=== PATIENT | male | born 1995 | race Caucasian/White ===

== ENCOUNTER 2016-11-29 13:25 | Emergency (ER) | payer OTHER, SELFPAY ==
--- NOTE | 2016-11-29 13:56 | ERPHSYRPT ---
- History of Present Illness Time Seen by Provider: 11/29/16 13:51 Source: patient Patient Subjective Stated Complaint: lt upper toothache for one week Triage Nursing Assessment: has dentist appt on thursday with dr warren. lt upper toothache for 1 week. broken tooth months ago but states pain started one week ago. multiple dental caries noted Physician History: C/O toothach for past 3 weeks to left upper teeth area. States injured tooth 3 months ago and to see dentist in 3 days. Increase pain with cold exposure and eating. Denies any fever, chills, nausea or vomiting. States had left jaw swelling yesterday but much better today. Timing/Duration: week(s) (3), intermittent Severity: moderate Modifying Factors: Improves With: cold therapy (worse), eating (worse) Associated Symptoms: No nausea, No vomiting, No fever, No headaches Allergies/Adverse Reactions: bee pollen Allergy (Verified 11/29/16 13:31) Home Medications: No Home Meds 1 [facility] UD 09/12/14 [History] Hx Tetanus, Diphtheria Vaccination/Date Given: Yes Hx Influenza Vaccination/Date Given: No Hx Pneumococcal Vaccination/Date Given: No Immunizations Up to Date: Yes - Review of Systems Constitutional: No Fever, No Chills Eyes: No Symptoms Ears, Nose, & Throat: Mouth Pain, Mouth Swelling, No Loose Teeth, No Throat Pain , No Throat Swelling Respiratory: No Cough, No Dyspnea Cardiac: No Chest Pain, No Edema, No Syncope Abdominal/Gastrointestinal: No Abdominal Pain, No Nausea, No Vomiting, No Diarrhea Genitourinary Symptoms: No Dysuria Musculoskeletal: No Back Pain, No Neck Pain Skin: No Rash Neurological: No Dizziness, No Focal Weakness, No Sensory Changes Psychological: No Symptoms Endocrine: No Symptoms All Other Systems: Reviewed and Negative - Past Medical History Pertinent Past Medical History: No Neurological History: No Pertinent History ENT History: No Pertinent History Cardiac History: No Pertinent History Respiratory History: No Pertinent History Endocrine Medical History: No Pertinent History Musculoskeletal History: Fractures GI Medical History: No Pertinent History History: No Pertinent History Psycho-Social History: Attention Deficit Disorder Male Reproductive Disorders: No Pertinent History Other Medical History: adhd as child - Past Surgical History Past Surgical History: Yes Neuro Surgical History: No Pertinent History Cardiac: No Pertinent History Respiratory: No Pertinent History Gastrointestinal: No Pertinent History Genitourinary: No Pertinent History Musculoskeletal: Orthopedic Surgery Male Surgical History: No Pertinent History Other Surgical History: hardware in rt wrist. tonsils - Social History Smoking Status: Current every day smoker How long have you smoked: 2 Exposure to second hand smoke: Yes Alcohol Use: Socially Drug Use: none Patient Lives Alone: No Significant Family History: no pertinent family hx - Nursing Vital Signs Nursing Vital Signs: Initial Vital Signs Temperature 98.3 F Pulse Rate 100 Respiratory Rate 18 Blood Pressure 133/86 Pain Intensity 7 - Physical Exam General Appearance: no apparent distress, alert Eye Exam: PERRL/EOMI, eyes nml inspection Ears, Nose, Throat Exam: TMs normal, pharynx normal, moist mucous membranes, other (patient with multiple dental caries. There is noticeable left upper molar tooth decay along with partially broken premolar. There is some tenderness to palpation to this area) Neck Exam: normal inspection, non-tender, supple, full range of motion Respiratory Exam: normal breath sounds, lungs clear, No respiratory distress Cardiovascular Exam: regular rate/rhythm, normal heart sounds, normal peripheral pulses Gastrointestinal/Abdomen Exam: soft, normal bowel sounds, No tenderness, No mass Back Exam: normal inspection, normal range of motion, No CVA tenderness, No vertebral tenderness Extremity Exam: normal inspection, normal range of motion, pelvis stable Neurologic Exam: alert, oriented x 3, cooperative, normal mood/affect, nml cerebellar function, nml station & gait, sensation nml, No motor deficits Skin Exam: normal color, warm, dry, No rash Lymphatic Exam: No adenopathy SpO2: 97 Oxygen Delivery: Room Air - Course Nursing assessment & vital signs reviewed: Yes - Progress Progress: unchanged Counseled pt/family regarding: diagnosis - Departure Time of Disposition: 14:00 Departure Disposition: Home, In-patient Admission Clinical Impression: Dental caries, Tooth decay, Dental caries Condition: Stable Critical Care Time: No Referrals: ZULEIMA MA MD [Primary Care Provider] - Additional Instructions: return for worse tooth pain, fever, swelling or any problems RX: Pen-Vee K and [place] 5 Prescriptions: Hydrocodone Bit/Acetaminophen [[place] 5-325 Tablet] 1 each PO Q6H PRN PRN #12 tablet PRN Reason: Pain Penicillin V Potassium 500 mg PO QID #40 tablet
[2016-11-29 14:09] VITALS: BP 140/88; PULSE 96; O2SAT 98
== END 2016-11-29 14:05 | disposition home or self-care (01) ==
LOC: ED 13:25
DX: K02.9 Dental caries, unspecified (principal)
CPT/HCPCS: 99282

== ENCOUNTER 2018-05-16 17:17 | Emergency (ER) | payer OTHER ==
[2018-05-16 17:46] VITALS: O2SAT 99
[2018-05-16] MEDS ORDERED: Sodium Chloride 0.9% 1000 ML 1,000 ML IV STA ×2 (18:10→19:24)
--- NOTE | 2018-05-16 18:14 | ERPHSYRPT ---
- History of Present Illness Time Seen by Provider: 05/16/18 18:11 Source: patient Exam Limitations: no limitations Patient Subjective Stated Complaint: pt reports muscle cramps for 2 days. reports working outside in the heat the last 2 days. Triage Nursing Assessment: pt is aox3, pupils perrl, resps easy and non labored , radial pulses strong and equal. skin is pink warm dry. cap refill < 3 seconds. pt afebrile. Physician History: This is a 22-year-old white male with history of ADD He arrives with complaint of a possible heat exhaustion. He states he has been having cramping in his muscles is felt nauseous symptoms going on for 2 days. Past medical history includes ADD. Past surgical history includes ORIF right wrist, tonsillectomy and adenoidectomy. Social history includes tobacco use. Timing/Duration: day(s) (2 days) Severity: moderate Modifying Factors: Improves With: nothing Associated Symptoms: nausea, malaise, other (mmuscle cramps in arms and legs), No vomiting, No abdominal pain, No shortness of breath, No heartburn, No diaphoresis, No cough, No chills, No chest pain, No fever, No headaches, No loss of appetite, No rash, No syncope, No seizure, No weakness Allergies/Adverse Reactions: bee pollen Allergy (Verified 05/16/18 17:45) Home Medications: No Home Meds [No Home Meds] 1 [facility] UD 09/12/14 [History] Hx Tetanus, Diphtheria Vaccination/Date Given: Yes Hx Influenza Vaccination/Date Given: No Hx Pneumococcal Vaccination/Date Given: No Immunizations Up to Date: Yes - Review of Systems Constitutional: Malaise, No Fever, No Chills Eyes: No Symptoms Ears, Nose, & Throat: No Symptoms Respiratory: No Cough, No Dyspnea Cardiac: No Chest Pain, No Edema, No Syncope Abdominal/Gastrointestinal: Nausea, No Abdominal Pain, No Vomiting, No Diarrhea , No Constipation, No Hematemesis, No Hematochezia, No Melena, No Dysphagia Genitourinary Symptoms: No Dysuria Musculoskeletal: Joint Swelling, Myalgias, Other (muscle cramps in arms and legs), No Arthralgias, No Back Pain, No Neck Pain, No Deformity, No Fall, No Injury, No Joint Redness, No Joint Pain Skin: No Rash Neurological: No Dizziness, No Focal Weakness, No Sensory Changes Psychological: No Symptoms Endocrine: No Symptoms All Other Systems: Reviewed and Negative - Past Medical History Pertinent Past Medical History: No Neurological History: No Pertinent History ENT History: No Pertinent History Cardiac History: No Pertinent History Respiratory History: No Pertinent History Endocrine Medical History: No Pertinent History Musculoskeletal History: Fractures GI Medical History: No Pertinent History History: No Pertinent History Psycho-Social History: Attention Deficit Disorder Male Reproductive Disorders: No Pertinent History Other Medical History: adhd as child - Past Surgical History Past Surgical History: Yes Neuro Surgical History: No Pertinent History Cardiac: No Pertinent History Respiratory: No Pertinent History Gastrointestinal: No Pertinent History Genitourinary: No Pertinent History Musculoskeletal: Orthopedic Surgery Male Surgical History: No Pertinent History Other Surgical History: hardware in rt wrist. tonsils - Social History Smoking Status: Current every day smoker How long have you smoked: 2 Exposure to second hand smoke: Yes Alcohol Use: Socially Drug Use: none Patient Lives Alone: No Significant Family History: no pertinent family hx - Nursing Vital Signs Nursing Vital Signs: Initial Vital Signs Temperature 99.0 F 05/16/18 17:32 Pulse Rate 102 H 05/16/18 17:32 Respiratory Rate 18 05/16/18 17:32 Blood Pressure 132/104 05/16/18 17:32 O2 Sat by Pulse Oximetry 99 05/16/18 17:32 Pain Scale Pain Intensity 0 - Physical Exam General Appearance: no apparent distress, alert Eye Exam: PERRL/EOMI Ears, Nose, Throat Exam: normal ENT inspection, TMs normal, pharynx normal, moist mucous membranes Neck Exam: normal inspection, non-tender, supple, full range of motion Respiratory Exam: normal breath sounds, lungs clear, No respiratory distress Cardiovascular Exam: regular rate/rhythm Gastrointestinal/Abdomen Exam: soft, normal bowel sounds, No tenderness, No mass Back Exam: normal inspection, normal range of motion, No CVA tenderness, No vertebral tenderness Extremity Exam: normal inspection, normal range of motion, pelvis stable Neurologic Exam: alert, oriented x 3, cooperative, cable puller II-XII nml as tested, normal mood/affect, nml cerebellar function, nml station & gait, sensation nml, No motor deficits Skin Exam: normal color, warm, dry, No rash Lymphatic Exam: No adenopathy SpO2 Interpretation: normal (99%) SpO2: 99 Oxygen Delivery: Room Air - Course Nursing assessment & vital signs reviewed: Yes EKG Interpreted by Me: RATE (78 bpm), Sinus Rhythm, NORMAL AXIS, Other (EKG, sinus rhythm, 78 beats for minute, normal axis, incomplete right bundle right bundle branch block, no acute ST or T wave changes noted) Ordered Tests: Active Orders 24 hr Category Date Time Status EKG-ER Only STAT Care 05/16/18 18:10 Active IV Insertion STAT Care 05/16/18 18:10 Active CBC W DIFF Stat Lab 05/16/18 18:30 Completed CMP Stat Lab 05/16/18 18:30 Completed Medication Summary Discontinued Medications Generic Name Dose Route Start Last Admin Trade Name Freq PRN Reason Stop Dose Admin Sodium Chloride 1,000 mls @ 999 mls/hr 05/16/18 18:10 05/16/18 18:43 Sodium Chloride 0.9% 1000 Ml IV 05/16/18 19:10 999 mls/hr .Q1H1M STA Administration Sodium Chloride Confirm 05/16/18 18:41 Sodium Chloride 0.9% 1000 Ml Administered 05/16/18 18:42 Dose 1,000 mls @ ud .ROUTE .STK-MED ONE Lab/Rad Data: Laboratory Result Diagrams 05/16/18 18:30 05/16/18 18:30 Laboratory Results 05/16/18 05/16/18 Range/Units 18:30 18:30 WBC 8.6 (4.0-10.5) K/mm3 RBC 5.17 (4.1-5.6) M/mm3 Hgb 15.5 (12.5-18.0) gm/dl Hct 43.9 (42-50) % MCV 84.9 (78-100) fl MCH 30.0 (26-32) pg MCHC 35.3 (32-36) g/dl RDW 13.6 (11.5-14.0) % Plt Count 220 (150-450) K/mm3 MPV 9.9 H (6-9.5) fl Gran % 52.1 (36.0-66.0) % Eos # (Auto) 0.77 H (0-0.5) Absolute Lymphs (auto) 2.53 (1.0-4.6) Absolute Monos (auto) 0.79 (0.0-1.3) Lymphocytes % 29.3 (24.0-44.0) % Monocytes % 9.2 (0.0-12.0) % Eosinophils % 8.9 H (0.00-5.0) % Basophils % 0.5 (0.0-0.4) % Absolute Granulocytes 4.50 (1.4-6.9) Basophils # 0.04 (0-0.4) Sodium 143 (137-145) mmol/L Potassium 5.1 (3.5-5.1) mmol/L Chloride 102 (98-107) mmol/L Carbon Dioxide 32 H (22-30) mmol/L Anion Gap 13.6 (5-15) MEQ/L BUN 28 H (9-20) mg/dL Creatinine 1.03 (0.66-1.25) mg/dL Estimated GFR > 60.0 ML/MIN Glucose 83 (74-106) mg/dL Calcium 9.4 (8.4-10.2) mg/dL Total Bilirubin 0.70 (0.2-1.3) mg/dL AST 24 (17-59) U/L ALT 21 (0-50) U/L Alkaline Phosphatase 71 (38-126) U/L Serum Total Protein 7.6 (6.3-8.2) g/dL Albumin 4.6 (3.5-5.0) g/dL - Progress Progress Note: 05/16/18 19:22 Patient is feeling better after 1 L of normal saline. Will give patient a second liter. Patient will be able to go home after this. - Departure Time of Disposition: 19:23 Departure Disposition: Home Clinical Impression: Heat exhaustion Qualifiers: Encounter type: initial encounter Qualified Code(s): T67.5XXA - Heat exhaustion , unspecified, initial encounter Heat cramps Qualifiers: Encounter type: initial encounter Qualified Code(s): T67.2XXA - Heat cramp, initial encounter Condition: Fair Critical Care Time: No Referrals: ZULEIMA MA MD [ACTIVE STAFF] - Additional Instructions: Return home. Plenty of fluids. Stay cool. Follow-up with your family doctor or return if problems. Return for acute distress or for severe symptoms.
[2018-05-16 18:37] LABS: BASOPHIL % 0.5 % (0.0-0.4); Basophil (Absolute #) 0.04 (0-0.4); Eosinophil % 8.9 % (0.00-5.0); Eosinophil (Absolute #) 0.77 (0-0.5); Granulocytes % 52.1 % (36.0-66.0); Hematocrit 43.9 % (42-50); Hemoglobin 15.5 gm/dl (12.5-18.0); Lymphocyte (Absolute #) 2.53 (1.0-4.6); Lymphocytes % 29.3 % (24.0-44.0); Mean Cell Volume 84.9 fl (78-100); Mean Corpuscular Hgb Concent. 35.3 g/dl (32-36); Mean Platelet Volume 9.9 fl (6-9.5); Monocyte (Absolute #) 0.79 (0.0-1.3); Monocytes % 9.2 % (0.0-12.0); Platelet Count 220 K/mm3 (150-450); Red Blood Count 5.17 M/mm3 (4.1-5.6); Red Cell Distribution Width 13.6 % (11.5-14.0); White Blood Count 8.6 K/mm3 (4.0-10.5)
[2018-05-16] MEDS ORDERED: Sodium Chloride 0.9% 1000 ML 1,000 ML ONE ×2 (18:41→19:26)
[2018-05-16 18:51] LABS: ALBUMIN 4.6 g/dL (3.5-5.0); ALKALINE PHOSPHATASE 71 U/L (38-126); ANION GAP 13.6 MEQ/L (5-15); BLOOD UREA NITROGEN 28 mg/dL (9-20); CHLORIDE 102 mmol/L (98-107); Calcium 9.4 mg/dL (8.4-10.2); Carbon Dioxide 32 mmol/L (22-30); Creatinine 1 1.03 mg/dL (0.66-1.25); Glucose 83 mg/dL (74-106); Potassium 5.1 mmol/L (3.5-5.1); SGOT/AST 24 U/L (17-59); SGPT/ALT 21 U/L (0-50); SODIUM 143 mmol/L (137-145); Total Protein 7.6 g/dL (6.3-8.2)
[2018-05-16 20:01] VITALS: BP 138/94; PULSE 80
== END 2018-05-16 20:06 | disposition home or self-care (01) ==
LOC: ED 17:17
DX: T67.5XXA Heat exhaustion, unspecified, initial encounter (principal); T67.2XXA Heat cramp, initial encounter
CPT/HCPCS: 36000; 36415; 80053; 85025; 93005; 99284

== ENCOUNTER 2018-06-21 14:00 | Emergency (ER) | payer OTHER ==
[2018-06-21 14:20] VITALS: O2SAT 98
--- NOTE | 2018-06-21 14:42 | ERPHSYRPT ---
- History of Present Illness Time Seen by Provider: 06/21/18 14:41 Source: patient Exam Limitations: no limitations Patient Subjective Stated Complaint: right hand pain secondary to injury Triage Nursing Assessment: pt to er c/o right hand pain following injury while at work, hand is warm to touch, pulses present, edema noted, able to wiggle fingers but painful Physician History: The patient is a 22-year-old right-handed male complaining that he injured his right hand while at work this morning. He was pushing on a pry bar to remove something from heavy equipment when the pry bar slipped, causing his hand to strike a metal object and then the pry bar hit him once again on his hand. The outer part of his right hand is swollen and painful. He denies numbness or tingling. His past medical history is significant for fracture of the right wrist that required internal fixation. Occurred: this morning Method of Injury: direct blow Quality: aching, sharpness Severity of Pain-Max: moderate Severity of Pain-Current: moderate Extremities Pain Location: hand: right Modifying Factors: Improves With: pain medication (tylenol) Associated Symptoms: none Allergies/Adverse Reactions: bee pollen Allergy (Verified 05/16/18 17:45) Home Medications: No Home Meds [No Home Meds] 1 [facility] UD 09/12/14 [History] Hx Tetanus, Diphtheria Vaccination/Date Given: Yes Hx Influenza Vaccination/Date Given: No Hx Pneumococcal Vaccination/Date Given: No - Review of Systems Constitutional: No Fever, No Chills Eyes: No Symptoms Ears, Nose, & Throat: No Symptoms Respiratory: No Cough, No Dyspnea Cardiac: No Chest Pain, No Edema, No Syncope Abdominal/Gastrointestinal: No Abdominal Pain, No Nausea, No Vomiting, No Diarrhea Genitourinary Symptoms: No Dysuria Musculoskeletal: Injury Skin: No Rash Neurological: No Dizziness, No Focal Weakness, No Sensory Changes Psychological: No Symptoms Endocrine: No Symptoms Hematologic/Lymphatic: No Symptoms Immunological/Allergic: No Symptoms All Other Systems: Reviewed and Negative - Past Medical History Pertinent Past Medical History: No Neurological History: No Pertinent History ENT History: No Pertinent History Cardiac History: No Pertinent History Respiratory History: No Pertinent History Endocrine Medical History: No Pertinent History Musculoskeletal History: Fractures GI Medical History: No Pertinent History History: No Pertinent History Psycho-Social History: Attention Deficit Disorder Male Reproductive Disorders: No Pertinent History Other Medical History: adhd as child - Past Surgical History Past Surgical History: Yes Neuro Surgical History: No Pertinent History Cardiac: No Pertinent History Respiratory: No Pertinent History Gastrointestinal: No Pertinent History Genitourinary: No Pertinent History Musculoskeletal: Orthopedic Surgery Male Surgical History: No Pertinent History Other Surgical History: hardware in rt wrist. tonsils - Social History Smoking Status: Current every day smoker How long have you smoked: 2 Exposure to second hand smoke: Yes Alcohol Use: Socially Drug Use: none Patient Lives Alone: No Significant Family History: no pertinent family hx - Nursing Vital Signs Nursing Vital Signs: Initial Vital Signs Temperature 98.4 F 06/21/18 14:13 Pulse Rate 92 H 06/21/18 14:13 Respiratory Rate 20 06/21/18 14:13 Blood Pressure 146/91 06/21/18 14:13 O2 Sat by Pulse Oximetry 98 06/21/18 14:13 Pain Scale Pain Intensity 8 - Physical Exam General Appearance: alert Eyes, Ears, Nose, Throat Exam: moist mucous membranes Neck Exam: non-tender, supple Cardiovascular/Respiratory Exam: chest non-tender, normal breath sounds, regular rate/rhythm, no respiratory distress Abdominal Exam: non-tender, No guarding Back Exam: normal inspection, No vertebral tenderness Shoulder Exam: normal inspection Elbow/Forearm Exam: normal inspection Wrist Exam: normal inspection Hand Exam: soft tissue tenderness, swelling (area over right 5th metacarpal.) Neuro/Tendon Exam: normal sensation, normal motor functions Mental Status Exam: alert, oriented x 3, cooperative Skin Exam: normal color, warm, dry SpO2 Interpretation: normal SpO2: 98 Oxygen Delivery: Room Air - Radiology Exams Right Wrist X-ray Interpretation: Reviewed by me, Teleradiologist Report (per Dr Quiles), Non- displaced Fracture (5th metacarpal) Right Hand X-ray Interpretation: Reviewed by me, Teleradiologist Report (Per Dr Quiles.), Non- displaced Fracture (5th metacarpal) Ordered Tests: Active Orders 24 hr Category Date Time Status Cold Application STAT Care 06/21/18 14:53 Active HAND (MINIMUM 3 VIEWS) Stat Exams 06/21/18 14:53 Completed WRIST (MIN 3 VIEWS) Stat Exams 06/21/18 14:53 Completed Medication Summary Discontinued Medications Generic Name Dose Route Start Last Admin Trade Name Freq PRN Reason Stop Dose Admin Ketorolac Tromethamine 60 mg 06/21/18 14:53 06/21/18 14:59 Toradol 30 Mg Injection IM 06/21/18 14:54 60 mg STAT ONE Administration Ketorolac Tromethamine Confirm 06/21/18 14:56 Toradol 30 Mg Injection Administered 06/21/18 14:57 Dose 60 mg .ROUTE .STK-MED ONE - Progress Progress: improved Counseled pt/family regarding: diagnosis, need for follow-up, rad results - Departure Time of Disposition: 16:17 Departure Disposition: Home Clinical Impression: Fracture, metacarpal shaft Condition: Stable Critical Care Time: No Referrals: ZULEIMA MA MD [Primary Care Provider] - Additional Instructions: You have a bone in your hand between your wrist and your little finger. You were placed in a cast for about 6 weeks. You were given Toradol 60 mg by IM in the ER. Take naproxen 500 mg every 12 hours as needed. Apply ice to your hand for 15 minutes 2 or 3 times a day for the next 2-3 days. Follow-up with your primary medical doctor in about one week. Prescriptions: Naproxen 500 mg PO BID PRN #30 tablet.
[2018-06-21] MEDS ORDERED: TORAdol 30 mg Injection ONE (14:56)
[2018-06-21] MEDS: TORAdol 30 mg Injection IM ONE (14:59)
--- NOTE | 2018-06-21 15:32 | XRAY ---
Indication: Pain following injury. Comparison: September 12, 2014. 3 views of the right wrist demonstrates new incomplete 5th metacarpal shaft acute fracture and degenerative changes base of the 5th metacarpal. Stable old scaphoid fracture with intact hardware and distal radial sclerosis favored to be benign given stability over the years. No other bony, articular, or soft tissue abnormalities.
--- NOTE | 2018-06-21 15:36 | XRAY ---
Indication: Pain following injury. Comparison: September 12, 2014. 3 views of the right hand demonstrates new incomplete 5th metacarpal shaft acute fracture and degenerative changes base of the 5th metacarpal. Stable old scaphoid fracture with intact hardware. No other bony, articular, or soft tissue abnormalities.
[2018-06-21 17:27] VITALS: BP 140/78; PULSE 69
== END 2018-06-21 17:26 | disposition home or self-care (01) ==
LOC: ED 14:00
PROC: 2W3CX1Z Immobilization of Right Lower Arm using Splint (ICD-10-PCS; principal; 2018-06-21)
DX: S62.326A Displaced fracture of shaft of fifth metacarpal bone, right hand, initial encounter for closed fracture (principal); W22.8XXA Striking against or struck by other objects, initial encounter; Y93.H3 Activity, building and construction; Y99.0 Civilian activity done for income or pay
CPT/HCPCS: 29126; 73110; 73130; 96372; 99284; J1885

== ENCOUNTER 2019-08-29 05:15 | Emergency (ER) | payer SELFPAY ==
[2019-08-29 05:36] VITALS: BP 149/104; PULSE 62; O2SAT 99
--- NOTE | 2019-08-29 05:42 | ERPHSYRPT ---
- History of Present Illness Time Seen by Provider: 08/29/19 05:37 Patient Subjective Stated Complaint: Toothache Triage Nursing Assessment: Patietn ambulated into ED and transferred self to bed. Patient A+O x3. Patient's skin pink, warm and dry. Patietn complains of dental pain to right upper jaw. Patient states he has an appointment next week with dentist, but is leaving town for 4 days for work and is in pain. Right back top molar noted to be decayed with gums swollen. Patient complains of constant throbbing pain 05/25. Physician History: 23 y/o white male presents with right upper molar and jaw pain. pt supposedly has dental appointment next week. he is going out of town for work for 4 days. denies fever. Timing/Duration: gradual onset Severity: moderate ENT Location: dental Prearrival Treatment: no prearrival treatment Associated Symptoms: tooth pain Allergies/Adverse Reactions: bee pollen Allergy (Verified 08/29/19 05:29) Home Medications: No Home Meds [No Home Meds] 1 [facility] UD 09/12/14 [History] Hx Tetanus, Diphtheria Vaccination/Date Given: Yes Hx Influenza Vaccination/Date Given: No Hx Pneumococcal Vaccination/Date Given: No Immunizations Up to Date: Yes - Review of Systems Constitutional: No Symptoms Eyes: No Symptoms Ears, Nose, & Throat: No Symptoms, Other (dental pain) Respiratory: No Symptoms Cardiac: No Symptoms Abdominal/Gastrointestinal: No Symptoms Genitourinary Symptoms: No Symptoms Musculoskeletal: No Symptoms Skin: No Symptoms Neurological: No Symptoms Psychological: No Symptoms Endocrine: No Symptoms Hematologic/Lymphatic: No Symptoms Immunological/Allergic: No Symptoms All Other Systems: Reviewed and Negative - Past Medical History Pertinent Past Medical History: No Neurological History: No Pertinent History ENT History: No Pertinent History Cardiac History: No Pertinent History Respiratory History: No Pertinent History Endocrine Medical History: No Pertinent History Musculoskeletal History: Fractures GI Medical History: No Pertinent History History: No Pertinent History Psycho-Social History: Attention Deficit Disorder Male Reproductive Disorders: No Pertinent History Other Medical History: adhd as child - Past Surgical History Past Surgical History: Yes Neuro Surgical History: No Pertinent History Cardiac: No Pertinent History Respiratory: No Pertinent History Gastrointestinal: No Pertinent History Genitourinary: No Pertinent History Musculoskeletal: Orthopedic Surgery Male Surgical History: No Pertinent History Other Surgical History: hardware in rt wrist. tonsils - Social History Smoking Status: Current every day smoker How long have you smoked: years Exposure to second hand smoke: Yes Alcohol Use: Socially Drug Use: none Patient Lives Alone: No Significant Family History: no pertinent family hx - Nursing Vital Signs Nursing Vital Signs: Initial Vital Signs Temperature 97.6 F 08/29/19 05:30 Pulse Rate 62 08/29/19 05:30 Respiratory Rate 18 08/29/19 05:30 Blood Pressure 149/104 08/29/19 05:30 O2 Sat by Pulse Oximetry 99 08/29/19 05:30 Pain Scale Pain Intensity 7 - Physical Exam General Appearance: no apparent distress, alert, anxiety Eye Exam: bilateral eye: normal inspection, PERRL, EOMI Ear Exam: bilateral ear: auricle normal Nasal Exam: normal inspection Throat Exam: dental tenderness (right upper molar with decay and gingivitis) Neck Exam: normal inspection, non-tender, supple, full range of motion, trachea midline Cardiovascular/Respiratory Exam: chest non-tender Abdominal Exam: non-tender Neurologic Exam: alert, oriented x 3, cooperative, audiovisual lead technician II-XII nml as tested Skin Exam: normal color, warm, dry SpO2 Interpretation: normal SpO2: 99 O2 Delivery: Room Air - Course EKG Interpreted by Me: RATE - Progress Progress: unchanged Counseled pt/family regarding: diagnosis, need for follow-up - Departure Departure Disposition: Home Clinical Impression: Pain, dental, Dental caries Condition: Stable Critical Care Time: No Referrals: ZULEIMA MA MD [Primary Care Provider] - Additional Instructions: take medications as prescribed. use tylenol and ibuprofen for pain. follow up with dentist for definitive care. Prescriptions: Amoxicillin 500 mg Cap [Amoxil 500 mg] 500 mg PO TID #30 capsule
[2019-08-29] MEDS ORDERED: PERCOCET TABLET 5/325MG PO STA (05:43)
[2019-08-29] MEDS ORDERED: AMOXIL 500 MG PO ONE (05:43)
[2019-08-29] MEDS ORDERED: AMOXIL 500 MG ONE (05:51)
== END 2019-08-29 06:02 | disposition home or self-care (01) ==
LOC: ED 05:15
DX: K02.9 Dental caries, unspecified (principal); K08.89 Other specified disorders of teeth and supporting structures
CPT/HCPCS: 99283; A9270-GY